=== PATIENT | female | born 1955 | race Caucasian/White ===

== ENCOUNTER 2025-04-30 12:49 | Emergency (ER) | payer MEDICARE, SELFPAY ==
[2025-04-30 13:02] VITALS: BP 124/57; PULSE 65; RESP 20; TEMP 36.6; O2SAT 98
--- NOTE | 2025-04-30 13:13 | ED_ITS ---
HPI - General Adult General Chief complaint: Skin/Abscess/Foreign Body Stated complaint: Rash Time Seen by Provider: 04/30/25 13:13 Source: patient Mode of arrival: ambulatory Limitations: no limitations History of Present Illness HPI narrative: 70-year-old female patient presents to [facility] with complaints of a rash on the left arm that started yesterday. Patient states she was out this week gardening since the weather has been better. Patient states she thinks she did come in contact with some poison sharmin. Patient states she has been putting some Benadryl cream to the rash denies any chest pain shortness of breath or trouble swallowing or breathing. Patient denies taking any antihistamines such as Zyrtec, Claritin or Coreen. Related Data Home Medications ?Medication ?Instructions ?Recorded ?Confirmed ?Last Taken ?Type atorvastatin 10 mg tablet mg 04/30/25 Unknown History bupropion HCl 300 mg 24 hr tablet, mg PO 04/30/25 Unknown History extended release duloxetine 60 mg capsule,delayed mg PO 04/30/25 Unknown History release gabapentin 300 mg capsule mg 04/30/25 Unknown History insulin lispro 200 unit/mL (3 mL) subcut 04/30/25 Unknown History subcutaneous pen (Humalog KwikPen U-200 Insulin) lisinopril 20 mg tablet mg 04/30/25 Unknown History pantoprazole 40 mg tablet,delayed mg PO 04/30/25 Unknown History release Allergies Allergy/AdvReac Type Severity Reaction Status Date / Time tirzepatide (From [facility]) AdvReac Mild belching Verified 04/30/25 13:11 Review of Systems Review of Systems: CONSTITUTIONAL: Denies fever, chills, or sweats. EYES: Denies visual changes, redness, or discharge. ENT: Denies rhinorrhea, congestion, sore throat, or otalgia. CARDIOVASCULAR: Denies chest pain, palpitations, or edema. RESPIRATORY: Denies cough or dyspnea. GASTROINTESTINAL: Denies abdominal pain, nausea, vomiting, or diarrhea. GENITOURINARY: Denies dysuria or hematuria. SKIN: Positive rash with itching to left arm. MUSCULOSKELETAL: Denies back pain, joint pain, or myalgia. NEUROLOGIC: Denies headache, numbness, or weakness. PSYCHIATRIC: Denies anxiety or depression. [facility] Past Medical History Medical History (Updated 04/30/25 @ 13:27 by CLAUDETTE Jung) Insulin pump in place Melanoma Depression Diabetes Closed left hip fracture Clubfoot GERD (gastroesophageal reflux disease) Pancreatitis Hypertension Hypercholesteremia Surgical History Surgical History (Updated 04/30/25 @ 13:27 by CLAUDETTE Jung) History of bilateral knee replacement History of left hip replacement H/O: hysterectomy Hx of appendectomy History of ERCP Hx of cholecystectomy History of tonsillectomy Comments At the time of my signature I agree with nursing past medical history, surgical, social, and family history. There is no relevant family history pertinent to the presenting complaint. Exam Narrative: GENERAL: Well-appearing, well-nourished, and in no acute distress. HEAD: Normocephalic, atraumatic. EYES: PERRLA and EOMI. ENT: Nares clear, no rhinorrhea or epistaxis. Mucous membranes moist. NECK: Supple. No lymphadenopathy CHEST: Clear to auscultation. No respiratory distress. HEART: Regular rate and rhythm. No murmur heard. Normal peripheral pulses. ABDOMEN: Soft, nontender, nondistended, normal active bowel sounds. EXTREMITIES: Normal range of motion. No edema. SKIN: Warm, dry, patient has a flat dry erythemic rash noted to a small area on the left lower forearm. Area measuring approximately 5 cm by 5 cm. Patient also has very small isolated satellite area to the left upper arm and appears to be pinpoint. NEURO: No focal deficits. Alert and oriented x3. Course Course Level of Care: Express Care Visit Vital Signs Vital signs: Vital Signs Temperature 36.6 C 04/30/25 13:02 Pulse Rate 65 04/30/25 13:02 Respiratory Rate 20 04/30/25 13:02 Blood Pressure 124/57 L 04/30/25 13:02 Pulse Oximetry 98 04/30/25 13:02 Oxygen Delivery Room Air 04/30/25 13:02 Temperature 36.6 C 04/30/25 13:02 Pulse Rate 65 04/30/25 13:02 Respiratory Rate 20 04/30/25 13:02 Blood Pressure 124/57 L 04/30/25 13:02 Pulse Oximetry 98 04/30/25 13:02 Oxygen Delivery Room Air 04/30/25 13:02 Vital signs reviewed. Medical Decision Making MDM Narrative Medical decision making narrative: Discussed with patient that our plan of care is to discharge her home with a steroid cream since the rash is just isolated to a small area on the left forearm. Also recommended that patient take a 24 hour antihistamines something such as Zyrtec, Claritin or Coreen to help with the itching and she may take Benadryl at night. Patient verbalized understanding denies any other questions or concerns at this time. Differential Diagnosis Differential Diagnosis: Differential diagnosis: Contact dermatitis, poison sharmin, poison sumac, psoriasis, eczema, allergic reaction, drug reaction, scabies, tinea syphilis, lung disease, viral exanthema, pityriasis, erythema multiforme. Vital Signs Vital Signs: Vital Signs Temperature 36.6 C 04/30/25 13:02 Pulse Rate 65 04/30/25 13:02 Respiratory Rate 20 04/30/25 13:02 Blood Pressure 124/57 L 04/30/25 13:02 Pulse Oximetry 98 04/30/25 13:02 Oxygen Delivery Room Air 04/30/25 13:02 Temperature 36.6 C 04/30/25 13:02 Pulse Rate 65 04/30/25 13:02 Respiratory Rate 20 04/30/25 13:02 Blood Pressure 124/57 L 04/30/25 13:02 Pulse Oximetry 98 04/30/25 13:02 Oxygen Delivery Room Air 04/30/25 13:02 Critical Care Time Critical Care Time Critical Care Time: No Discharge Plan Discharge Clinical Impression: Allergic contact dermatitis due to plant Patient Disposition: Home Condition: Stable Instructions: Antibiotic Form, Contact Dermatitis (ED) Additional Instructions: Wash the area with soap and cool water only. Use skin creams/lotion or anti-itch medicine to reduce itchiness Avoid scratching when possible to prevent worsening of the condition and disruption of the skin that could lead to bacterial infection To relieve itching, place a cool washcloth or some ice over the area that itches, rather than scratching Follow up with primary care provider or seek ER if you have trouble breathing, become hoarse, or start wheezing, develop belly cramps, vomiting or feel dizzy. Patient Language: Nigerien Prescriptions: New triamcinolone acetonide 0.5 % cream 1 applic topical BID Qty: 15 0RF No Action atorvastatin 10 mg tablet lisinopril 20 mg tablet pantoprazole 40 mg tablet,delayed release (DR/EC) PO gabapentin 300 mg capsule bupropion HCl 300 mg tablet extended release 24 hr PO duloxetine 60 mg capsule,delayed release(DR/EC) PO Humalog KwikPen Insulin 200 unit/mL (3 mL) insulin pen SUBCUT Follow-up/Referrals: Tara,MD Barron [Primary Care Provider] - Time of Disposition: 13:22
== END 2025-04-30 13:28 | disposition home or self-care (01) ==
PROVIDERS: Emergency Provider Nurse Practitioner Family; PCP Internal Medicine
DX: L23.7 Allergic contact dermatitis due to plants, except food (principal); E11.9 Type 2 diabetes mellitus without complications; Z96.41 Presence of insulin pump (external) (internal); Z79.4 Long term (current) use of insulin; I10 Essential (primary) hypertension; E78.00 Pure hypercholesterolemia, unspecified; K21.9 Gastro-esophageal reflux disease without esophagitis; F32.A Depression, unspecified; Z85.820 Personal history of malignant melanoma of skin; Z96.653 Presence of artificial knee joint, bilateral; Z96.642 Presence of left artificial hip joint
CPT/HCPCS: 99213; G0463